=== PATIENT | female | born 1980 | race Hispanic/Latino ===

== ENCOUNTER 2017-06-07 23:41 | Emergency (ER) | payer SELFPAY, OTHER ==
--- NOTE | 2017-06-08 08:52 | RAD ---
TWO VIEW CHEST: INDICATIONS: Cough. COMPARISON: 06/28/2009 FINDINGS: The lungs are clear. No effusion or pneumothorax. The cardiac silhouette is normal in size. The os seous structures are intact. There are metallic clips in the right upper abdomen. IMPRESSION: No focal consolidation. POS: [facility]
== END 2017-06-08 01:30 | disposition home or self-care (01) ==
LOC: ERS 23:41
DX: J40 Bronchitis, not specified as acute or chronic (principal); G40.909 Epilepsy, unspecified, not intractable, without status epilepticus
CPT/HCPCS: 71046; 87804

== ENCOUNTER 2017-07-04 20:54 | Emergency (ER) | payer SELFPAY ==
[2017-07-04] MEDS ORDERED: Diazepam 5 MG TAB ONE (22:13)
== END 2017-07-04 22:55 | disposition home or self-care (01) ==
LOC: ERS 20:54
DX: S76.912A Strain of unspecified muscles, fascia and tendons at thigh level, left thigh, initial encounter (principal); G40.909 Epilepsy, unspecified, not intractable, without status epilepticus; Z79.899 Other long term (current) drug therapy; W19.XXXA Unspecified fall, initial encounter

== ENCOUNTER 2017-07-31 18:45 | Emergency (ER) | payer SELFPAY | END 2017-07-31 19:41 | disposition home or self-care (01) | LOC: ERS 18:45 | DX: R10.31 Right lower quadrant pain (principal); R10.32 Left lower quadrant pain; G40.909 Epilepsy, unspecified, not intractable, without status epilepticus; Z79.899 Other long term (current) drug therapy | CPT/HCPCS: 99284 ==

== ENCOUNTER 2017-08-14 15:05 | Emergency (ER) | payer SELFPAY ==
[2017-08-14 15:27] LABS: #Eosinphils 0.1 thou/uL (0.0-0.7); #Lymphocytes 1.5 thou/uL (1.20-3.40); #Monocytes 0.3 thou/uL (0.11-0.59); #Neutrophils 2.8 thou/uL (1.40-6.50); %Basophils 0.8 % (0.0-1.0); %Eosinophils 1.9 % (0.0-10.0); %Lymphocytes 32.2 % (21.0-51.0); %Monocytes 6.4 % (0.0-10.0); %Neutrophils 58.8 % (42.0-75.0); Hemoglobin 13.8 g/dL (12.0-16.0); Mean Corpuscular HGB CONC 33.1 g/dL (32.0-36.0); Mean Corpuscular Hemoglobin 31.9 pg (27.0-31.0); Mean Corpuscular Volume 96.3 fl (81.0-99.0); Mean Platelet Volume 7.8 fL (7.4-10.4); Platelet Count 174 thou/uL (130-400); RBC Distribution Width 11.5 % (11.5-14.5); Red Blood Cell (RBC) Count 4.34 mill/uL (4.20-5.40); White Blood Cell (WBC) Count 4.7 thou/uL (4.8-10.8)
[2017-08-14 15:46] LABS: ALT (SGPT) 9 U/L (8-55); AST (SGOT) 11 U/L (5-34); Albumin 4.3 g/dL (3.5-5.0); Alkaline Phosphatase 82 U/L (40-150); Anion Gap 11 mmol/L (10-20); BUN (Urea Nitrogen) 10 mg/dL (7.0-18.7); Bilirubin, Total 0.5 mg/dL (0.2-1.2); Calc. Creatinine Clearance 0 mL/min (70-130); Calcium 9.1 mg/dL (7.8-10.44); Carbon Dioxide 25 mmol/L (22-29); Chloride 107 mmol/L (98-107); Estimated GFR-MDRD 79; Globulin 2.5 g/dL (2.4-3.5); Glucose 96 mg/dL (70-105); Potassium 3.8 mmol/L (3.5-5.1); Protein, Total 6.8 g/dL (6.0-8.3); Sodium 139 mmol/L (136-145)
[2017-08-14 15:56] LABS: Bilirubin Negative (Negative); Blood, Urine Negative (Negative); Clarity CLOUDY (Clear); Glucose, Urine (Dipstick) Negative (Negative); Leukocyte Negative (Negative); Nitrite Negative (Negative); Protein, Urine (Dipstick) Negative (Neg-Trace); Specific Gravity, Urine 1.021 (1.002-1.036)
[2017-08-14 16:01] LABS: Pregnancy Test - Urine (BHCG) Negative (Negative); Pregu Control Background? CLEAR/WHITE (CLR/WHITE); Pregu Control Bar Appear? YES (CONTROL BAR); Specific Gravity 1.021 (1.002-1.036)
[2017-08-14] MEDS ORDERED: Ondansetron HCl/PF 4 MG/2 ML Vial ONE (17:48)
[2017-08-14] MEDS ORDERED: Famotidine/PF 20 mg/2ml Vial ONE (17:48)
== END 2017-08-14 19:00 | disposition home or self-care (01) ==
LOC: ERS 15:05
DX: R10.9 Unspecified abdominal pain (principal); R19.7 Diarrhea, unspecified; R11.0 Nausea; G40.909 Epilepsy, unspecified, not intractable, without status epilepticus
CPT/HCPCS: 36415; 80053; 81003; 81025; 85025; 96361; 96372; 96374; 96375; J2405; S0028

== ENCOUNTER 2017-10-09 16:21 | Outpatient (CLI) | payer OTHER ==
[2017-10-09 17:06] LABS: #Eosinphils 0.1 thou/uL (0.0-0.7); #Lymphocytes 1.8 thou/uL (1.20-3.40); #Monocytes 0.4 thou/uL (0.11-0.59); #Neutrophils 3.8 thou/uL (1.40-6.50); %Basophils 0.4 % (0.0-1.0); %Eosinophils 1.6 % (0.0-10.0); %Lymphocytes 29.1 % (21.0-51.0); %Monocytes 6.6 % (0.0-10.0); %Neutrophils 62.2 % (42.0-75.0); Hemoglobin 13.8 g/dL (12.0-16.0); Mean Corpuscular HGB CONC 34.9 g/dL (32.0-36.0); Mean Corpuscular Hemoglobin 32.4 pg (27.0-31.0); Mean Corpuscular Volume 92.8 fl (81.0-99.0); Mean Platelet Volume 8.4 fL (7.4-10.4); Platelet Count 141 thou/uL (130-400); RBC Distribution Width 11.4 % (11.5-14.5); Red Blood Cell (RBC) Count 4.25 mill/uL (4.20-5.40); White Blood Cell (WBC) Count 6.2 thou/uL (4.8-10.8)
== END 2017-10-09 16:22 | disposition home or self-care (01) ==
LOC: LABBT 16:21
PROVIDERS: ATTEND Specialist
DX: Z01.812 Encounter for preprocedural laboratory examination (principal); D24.1 Benign neoplasm of right breast
CPT/HCPCS: 85025

== ENCOUNTER 2017-10-11 14:36 | Emergency (ER) | payer OTHER, SELFPAY ==
[2017-10-11] MEDS ORDERED: diphenhydrAMINE 50 MG/ML VIAL ONE (15:45)
[2017-10-11] MEDS ORDERED: Metoclopramide HCl 10 MG/2 ML VIAL ONE (15:45)
[2017-10-11 15:52] LABS: #Lymphocytes 1.4 thou/uL (1.20-3.40); #Monocytes 0.7 thou/uL (0.11-0.59); #Neutrophils 7.7 thou/uL (1.40-6.50); %Basophils 0.3 % (0.0-1.0); %Eosinophils 0.3 % (0.0-10.0); %Lymphocytes 14.4 % (21.0-51.0); %Monocytes 6.8 % (0.0-10.0); %Neutrophils 78.2 % (42.0-75.0); Mean Corpuscular HGB CONC 34.6 g/dL (32.0-36.0); Mean Corpuscular Hemoglobin 32.4 pg (27.0-31.0); Mean Corpuscular Volume 93.5 fl (81.0-99.0); Mean Platelet Volume 8.2 fL (7.4-10.4); Platelet Count 145 thou/uL (130-400); RBC Distribution Width 11.6 % (11.5-14.5); Red Blood Cell (RBC) Count 4.31 mill/uL (4.20-5.40); White Blood Cell (WBC) Count 9.8 thou/uL (4.8-10.8)
[2017-10-11 15:57] LABS: BHCG - Serum Negative (NEGATIVE); Pregs Control Background? CLEAR/WHITE (CLR/WHITE); Pregs Control Bar Appear? YES (CONTROL BAR)
[2017-10-11 16:16] LABS: ALT (SGPT) 10 U/L (8-55); AST (SGOT) 14 U/L (5-34); Albumin 4.3 g/dL (3.5-5.0); Alkaline Phosphatase 74 U/L (40-150); Anion Gap 9 mmol/L (10-20); BUN (Urea Nitrogen) 17 mg/dL (7.0-18.7); Bilirubin, Total 0.6 mg/dL (0.2-1.2); Calc. Creatinine Clearance 0 mL/min (70-130); Calcium 8.8 mg/dL (7.8-10.44); Carbon Dioxide 22 mmol/L (22-29); Chloride 109 mmol/L (98-107); Estimated GFR-MDRD 80; Globulin 2.5 g/dL (2.4-3.5); Glucose 89 mg/dL (70-105); Potassium 3.6 mmol/L (3.5-5.1); Protein, Total 6.8 g/dL (6.0-8.3); Sodium 136 mmol/L (136-145)
--- NOTE | 2017-10-11 16:25 | CT ---
NONCONTRAST CT HEAD: 10/11/17 HISTORY: Seizure. Trauma. Patient found on floor at 0815 hours today. History of epilepsy. COMPARISON: 11/29/16. FINDINGS: There is no evidence of a hemorrhage, acute infarction, mass effect, or midline shift. Ventricular sy stem is normal in size, shape and position. Again noted is mucosal thickening in the left sphenoid si nus. No other interval change from prior exam. IMPRESSION: 1. No acute intracranial abnormalities demonstrated. 2. Sinus disease involving the left sphenoid sinus. POS: [facility]
--- NOTE | 2017-10-11 16:29 | CT ---
NONCONTRAST CT CERVICAL SPINE 10/11/17 HISTORY: Patient found down on floor around 0815 hours today. History of epilepsy. Trauma. Unwitnessed seizure today. Patient fell from bed to floor. COMPARISON: 11/29/16. FINDINGS: There is no fracture or subluxation involving the cervical spine. Spinal alignment is maintained. The re are mild degenerative changes seen at the C6-7 level with a disc osteophyte complex present which narrows the ventral subarachnoid space and encroaches on the spinal cord. Prevertebral soft tissues are within normal limits. Visualized lung apices are clear. IMPRESSION: No fracture or subluxation involving the cervical spine. Cervical spine is stable compared to study i n 2017. POS: [facility]
== END 2017-10-11 17:20 | disposition home or self-care (01) ==
LOC: ERS 14:36
DX: G40.909 Epilepsy, unspecified, not intractable, without status epilepticus (principal); Z79.899 Other long term (current) drug therapy
CPT/HCPCS: 70450; 72125; 80053; 80177; 84146; 84703; 85025; 96365; 96375; J1200; J2765

== ENCOUNTER 2017-10-15 05:46 | Day surgery (SDC) | payer OTHER ==
[2017-10-09 16:28] VITALS: BMI 25.5
--- NOTE | 2017-10-14 17:24 | HP ---
HISTORY: Velvet Morgan is a 37-year-old female who works at [employer]. 4, para 4 with a family history negative for breast cancer, although her mother had uterine cancer. Patient has had a hysterectomy because of dysplastic cells. The patient has developed a right breast mass and about 5 months ago presented to [facility] Emergency Room. In the medial right breast was noted to have an almond sized mass that she was told would go away. Since that time it has more than quadr upled in size and now she is sent for evaluation. She has had mammograms and ultrasounds of the [facility] t breast, noting a mass 3.7 x 2.5 x 3.7 cm wider than tall, right breast medial. The patient states that this is painful and bothersome to her. She is concerned about malignancy. PHYSICAL EXAMINATION: BREAST: On exam today this is a smooth mobile mass, slightly tender and more characteristic of an en larging fibroadenoma, although cannot be sure there is not a cystosarcoma phyllodes present due to it s rapid enlargement. Would recommend excision and would not bother with biopsy on this occasion. Th e patient unfortunately does not have any financial resources. Plan is to excise this under anesthes ia. It is too large to excise in the office. In 2014 the patient had excision of multiple fibromas from both breasts under the same anesthet ic she had a hysterectomy. ALLERGIES: None. TOBACCO: None. ALCOHOL: None. MEDICATIONS: Anti-seizure medications, levetiracetam, zonisamide, Zanaflex. PAST SURGICAL HISTORY: Hysterectomy, resection of bilateral breast fibroadenomas 2014. FAMILY HISTORY: Noncontributory except as noted above. PHYSICAL EXAMINATION: VITAL SIGNS: Blood pressure 105/63, 65, 98.8 degrees, 149 pounds, 5 foot 4 inches. HEENT: Unremarkable. LUNGS: Clear to auscultation. CARDIAC: Regular rate and rhythm without murmur or gallop. ABDOMEN: Soft, nontender, no masses. EXTREMITIES: Unremarkable. BREASTS: Axilla without lymphadenopathy. Left breast without masses, right breast medially is noted to have a 4 cm mobile mass that is slightly tender. ASSESSMENT AND PLAN: 1. Medial right breast mass. Would plan excision under anesthesia outpatient. She understands risk s, benefits, and consents. I would not do a biopsy in the office as I do not think it would change i ndication to excise this. It is most likely enlarging fibroadenoma with some concern for a cystosarc marielos phyllodes. 2. Seizure disorder. No seizure in the last 5 months. She states she has seizures about every 6 mo nths.
[2017-10-15] MEDS ORDERED: Bupivacaine/Epinephrine 0.25% 30 ML VIAL ONE ×2 (06:32→08:01)
[2017-10-15] MEDS ORDERED: Lidocaine 2% 10 ML INJ ONE (06:32)
[2017-10-15] MEDS ORDERED: Fentanyl 100 MCG/2 ML VIAL ONE (06:56)
[2017-10-15] MEDS ORDERED: Meperidine HCl/PF 25 MG/ML VIAL ONE (08:55)
--- NOTE | 2017-10-15 09:05 | OP ---
DATE OF PROCEDURE: 10/15/2017 PREOPERATIVE DIAGNOSES: Right breast mass medial 3 o'clock in her breast, 4 centimeters, mobile, smo oth mass consistent with fibroadenoma with prior history of multiple fibroadenomas resected, but this one is painful and enlarging. POSTOPERATIVE DIAGNOSES: Right breast mass medial 3 o'clock in her breast, 4 centimeters, mobile, s mooth mass consistent with fibroadenoma with prior history of multiple fibroadenomas resected, but th is one is painful and enlarging. PROCEDURE: Excision of right medial breast mass, medial periareolar incision, layered closure. ANESTHESIA: General. Local 0.25% Marcaine with epinephrine 40 mL mixed with 2% Xylocaine, 10 mL. SURGEON: Dr. Josiah Love PROCEDURE: The patient was taken to the operating room where under general anesthesia, right breast was prepared with ChloraPrep, draped in routine fashion. Local anesthetic infiltrated into the skin and subcutaneous tissue, periareolar medial incision made through the old scar, carried down skin and subcutaneous tissue and the large fiber adenomatous 4 centimeter proximally diameter breast mass exc ised, finger dissection, well encapsulated, smooth, submitted to pathology. Hemostasis gained with c autery. Subcutaneous tissues approximated with 3-0 Monocryl, skin with subdermal 4-0 Monocryl and De rmaGlue applied after local anesthetic infiltrated in the excisional cavity for postoperative pain co ntrol.
[2017-10-15] MEDS ORDERED: Dexamethasone 20 MG/5 ML VIAL ONE (14:49)
[2017-10-15] MEDS ORDERED: Ketorolac Tromethamine 30 MG/ML VIAL ONE (14:49)
[2017-10-15] MEDS ORDERED: diphenhydrAMINE 50 MG/ML VIAL ONE (14:49)
[2017-10-15] MEDS ORDERED: Glycopyrrolate 0.2 MG/ML 5 ML SYRINGE ONE (14:49)
[2017-10-15] MEDS ORDERED: PROPOFOL 200 MG/20 ML VIAL ONE (14:49)
== END 2017-10-15 11:18 | disposition home or self-care (01) ==
LOC: SDC 05:46
PROVIDERS: ATTEND Specialist
PROC: 0HBT0ZX Excision of Right Breast, Open Approach, Diagnostic (ICD-10-PCS; principal; 2017-10-15)
DX: D24.1 Benign neoplasm of right breast (principal); D64.9 Anemia, unspecified; G43.909 Migraine, unspecified, not intractable, without status migrainosus; R56.9 Unspecified convulsions; Z88.5 Allergy status to narcotic agent; Z88.6 Allergy status to analgesic agent; Z88.8 Allergy status to other drugs, medicaments and biological substances; Z91.013 Allergy to seafood; Z79.899 Other long term (current) drug therapy
CPT/HCPCS: 88305; 96374; J1100; J1200; J1885; J2175; J2704; J3010

== ENCOUNTER 2017-11-12 13:22 | Emergency (ER) | payer SELFPAY ==
--- NOTE | 2017-11-12 13:54 | RAD ---
LEFT HAND THREE VIEWS: History: 37-year-old female with history of left hand and thumb pain following a fall yesterday. FINDINGS/IMPRESSION: No fracture, dislocation, or other significant acute osseous abnormality. POS: [facility]
== END 2017-11-12 14:15 | disposition home or self-care (01) ==
LOC: ERS 13:22
DX: S63.602A Unspecified sprain of left thumb, initial encounter (principal); G40.909 Epilepsy, unspecified, not intractable, without status epilepticus; Z79.899 Other long term (current) drug therapy; W01.0XXA Fall on same level from slipping, tripping and stumbling without subsequent striking against object, initial encounter

== ENCOUNTER 2018-04-08 16:52 | Emergency (ER) | payer SELFPAY ==
[2018-04-08] MEDS ORDERED: Diazepam 5 MG TAB ONE (18:28)
--- NOTE | 2018-04-08 19:25 | RAD ---
LEFT WRIST THREE VIEWS: 04/08/18 INDICATION: History of seizure with fall with left wrist pain. COMPARISON: None. FINDINGS: No acute fracture or subluxation is evident. Soft tissue is normal appearing. IMPRESSION: No acute osseous abnormality. POS: [facility]
--- NOTE | 2018-04-08 19:28 | RAD ---
LEFT LONG FINGER RADIOGRAPH (THREE VIEWS) 04/08/18 INDICATION: History of seizure with fall with left finger pain. COMPARISON: None. FINDINGS: No acute fracture or subluxation is evident. No radiopaque foreign body is noted. IMPRESSION: No acute osseous abnormality. POS: [facility]
== END 2018-04-08 19:06 | disposition home or self-care (01) ==
LOC: ERS 16:52
DX: S60.032A Contusion of left middle finger without damage to nail, initial encounter (principal); M25.532 Pain in left wrist; Z79.899 Other long term (current) drug therapy; W18.30XA Fall on same level, unspecified, initial encounter

== ENCOUNTER 2018-10-30 09:57 | Emergency (ER) | payer SELFPAY ==
[2018-10-30 10:39] LABS: #Eosinphils 0.1 thou/uL (0.0-0.7); #Lymphocytes 1.6 thou/uL (1.20-3.40); #Monocytes 0.3 thou/uL (0.11-0.59); #Neutrophils 2.5 thou/uL (1.40-6.50); %Basophils 0.9 % (0.0-1.0); %Eosinophils 1.5 % (0.0-10.0); %Lymphocytes 34.8 % (21.0-51.0); %Monocytes 7.4 % (0.0-10.0); %Neutrophils 55.4 % (42.0-75.0); Hemoglobin 13.9 g/dL (12.0-16.0); Mean Corpuscular Hemoglobin 32.3 pg (27.0-31.0); Mean Corpuscular Volume 94.8 fL (78.0-98.0); Mean Platelet Volume 8.3 fL (7.4-10.4); Platelet Count 150 thou/uL (130-400); RBC Distribution Width 11.4 % (11.5-14.5); Red Blood Cell (RBC) Count 4.31 mill/uL (4.20-5.40); White Blood Cell (WBC) Count 4.5 thou/uL (4.8-10.8)
[2018-10-30 10:44] LABS: BHCG - Serum Negative (NEGATIVE); Pregs Control Background? CLEAR/WHITE (CLR/WHITE); Pregs Control Bar Appear? YES (CONTROL BAR)
[2018-10-30 10:52] LABS: Bilirubin Negative (Negative); Blood, Urine Negative (Negative); Clarity CLEAR (Clear); Glucose, Urine (Dipstick) Negative (Negative); Leukocyte Negative (Negative); Nitrite Negative (Negative); Protein, Urine (Dipstick) Negative (Neg-Trace); Specific Gravity, Urine 1.016 (1.002-1.036)
[2018-10-30 11:01] LABS: ALT (SGPT) 7 U/L (8-55); AST (SGOT) 11 U/L (5-34); Albumin 4.7 g/dL (3.5-5.0); Alkaline Phosphatase 79 U/L (40-150); Anion Gap 12 mmol/L (10-20); BUN (Urea Nitrogen) 15 mg/dL (7.0-18.7); Bilirubin, Total 0.8 mg/dL (0.2-1.2); Calc. Creatinine Clearance 0 mL/min (70-130); Calcium 9.4 mg/dL (7.8-10.44); Carbon Dioxide 23 mmol/L (22-29); Chloride 108 mmol/L (98-107); Estimated GFR-MDRD 77; Globulin 2.5 g/dL (2.4-3.5); Glucose 100 mg/dL (70-105); Lipase 17 U/L (8-78); Potassium 4.8 mmol/L (3.5-5.1); Protein, Total 7.2 g/dL (6.0-8.3); Sodium 138 mmol/L (136-145)
--- NOTE | 2018-10-30 11:20 | ULT ---
PELVIC ULTRASOUND: Transabdominal and endovaginal ultrasound of pelvis performed. INDICATION: 38-year-old female with pelvic pain. History of ovarian cyst. FINDINGS: Patient is status post hysterectomy. Right ovary is identified. There is a right ovarian cyst measuri ng 1.0 x 1.5 cm. There are other small normal appearing follicles in the right ovary. Left ovary is identified and appears unremarkable. Color Doppler with spectral analysis demonstrates blood flow to both ovaries. IMPRESSION: Small right ovarian cyst. Pelvic ultrasound otherwise unremarkable. POS: [facility]
== END 2018-10-30 11:42 | disposition home or self-care (01) ==
LOC: ERS 09:57
DX: N83.201 Unspecified ovarian cyst, right side (principal); G40.909 Epilepsy, unspecified, not intractable, without status epilepticus; Z79.899 Other long term (current) drug therapy
CPT/HCPCS: 36415; 76856; 80053; 81003; 83690; 84703; 85025; 87086

== ENCOUNTER 2019-09-02 10:14 | Outpatient (CLI) | payer BC ==
--- NOTE | 2019-09-02 10:46 | RAD ---
RIGHT ELBOW 4 VIEWS: Date; 09/02/2019 HISTORY: Right elbow pain. FINDINGS: No fracture, dislocation, joint effusion, or other significant acute process. IMPRESSION: Unremarkable right elbow. POS: [facility]
== END 2019-09-02 10:15 | disposition home or self-care (01) ==
LOC: BICRAD 10:14
PROVIDERS: ATTEND Nurse Practitioner Family
DX: M25.521 Pain in right elbow (principal)

== ENCOUNTER 2019-11-25 12:26 | Emergency (ER) | payer BC ==
[2019-11-25 13:04] LABS: #Lymphocytes 1.5 thou/uL (1.20-3.40); #Monocytes 0.3 thou/uL (0.11-0.59); #Neutrophils 2.9 thou/uL (1.40-6.50); %Basophils 0.5 % (0.0-1.0); %Eosinophils 0.8 % (0.0-10.0); %Lymphocytes 32.2 % (21.0-51.0); %Monocytes 6.3 % (0.0-10.0); %Neutrophils 60.2 % (42.0-75.0); Hemoglobin 14.2 g/dL (12.0-16.0); Mean Corpuscular HGB CONC 35.6 g/dL (32.0-36.0); Mean Corpuscular Hemoglobin 33.2 pg (27.0-31.0); Mean Corpuscular Volume 93.5 fL (78.0-98.0); Mean Platelet Volume 8.5 fL (7.4-10.4); Platelet Count 150 thou/uL (130-400); RBC Distribution Width 11.4 % (11.5-14.5); Red Blood Cell (RBC) Count 4.28 mill/uL (4.20-5.40); White Blood Cell (WBC) Count 4.8 thou/uL (4.8-10.8)
[2019-11-25 13:25] LABS: BHCG - Serum Negative (NEGATIVE); Pregs Control Background? CLEAR/WHITE (CLR/WHITE); Pregs Control Bar Appear? YES (CONTROL BAR)
[2019-11-25 13:29] LABS: ALT (SGPT) 10 U/L (8-55); AST (SGOT) 12 U/L (5-34); Albumin 4.5 g/dL (3.5-5.0); Alkaline Phosphatase 81 U/L (40-110); Anion Gap 9 mmol/L (10-20); BUN (Urea Nitrogen) 11 mg/dL (7.0-18.7); Bilirubin, Total 0.6 mg/dL (0.2-1.2); Calc. Creatinine Clearance 0 mL/min (70-130); Calcium 8.8 mg/dL (7.8-10.44); Carbon Dioxide 24 mmol/L (22-29); Chloride 106 mmol/L (98-107); Estimated GFR-MDRD 78; Globulin 2.7 g/dL (2.4-3.5); Glucose 93 mg/dL (70-105); Lipase 21 U/L (8-78); Potassium 3.3 mmol/L (3.5-5.1); Protein, Total 7.2 g/dL (6.0-8.3); Sodium 136 mmol/L (136-145)
[2019-11-25] MEDS ORDERED: Ondansetron PF 4 MG/2 ML Vial ONE (13:56)
[2019-11-25] MEDS ORDERED: Fentanyl 100 MCG/2 ML VIAL ONE (13:56)
[2019-11-25 14:16] LABS: Bilirubin Negative (Negative); Blood, Urine Negative (Negative); Clarity Clear (Clear); Glucose, Urine (Dipstick) Normal (Negative); Leukocyte Negative Leu/uL (Negative); Nitrite Negative (Negative); Protein, Urine (Dipstick) Negative (Neg-Trace); Urobilinogen Normal mg/dL (Less than 2)
[2019-11-25] MEDS ORDERED: Iopamidol-370 76% 500 ML 1 ML ONE (14:26)
--- NOTE | 2019-11-25 15:33 | CT ---
CT ABDOMEN AND PELVIS WITH IV CONTRAST: 11/25/19 HISTORY: Right lower quadrant pain. COMPARISON: 08/23/15. FINDINGS: The lung bases are unremarkable. Changes of cholecystectomy and hysterectomy are seen. The spleen, pa ncreas, adrenal glands and kidneys are normal. There is a new peripheral 1 cm low density lesion in the posterior aspect of the right lobe of the li hawk, close to the dome. There is an attenuation value of 45 Hounsfield units. No free air, free fluid or lymphadenopathy seen in the abdomen or pelvis. The small bowel loops are n ot abnormally dilated. A normal appearing appendix is present. There is sigmoid diverticulosis. There is no evidence of aneurysmal dilatation of the abdominal aorta. There are mild degenerative ally nges in the spine. IMPRESSION: 1. No evidence of appendicitis. 2. Sigmoid diverticulosis. 3. Indeterminate 1 cm liver lesion. A follow-up exam should be performed in three months. A meta static workup would also be helpful. Code T POS: [facility]
== END 2019-11-25 16:21 | disposition home or self-care (01) ==
LOC: ERS 12:26
DX: R10.31 Right lower quadrant pain (principal); Z79.899 Other long term (current) drug therapy
CPT/HCPCS: 36415; 74177; 80053; 81003; 83605; 83690; 84703; 85025; 96361; 96374; 96375; J2405; J3010; Q9967

== ENCOUNTER 2019-12-27 15:40 | Emergency (ER) | payer BC ==
[2019-12-27 16:21] LABS: #Eosinphils 0.1 thou/uL (0.0-0.7); #Lymphocytes 1.7 thou/uL (1.20-3.40); #Monocytes 0.3 thou/uL (0.11-0.59); #Neutrophils 3.6 thou/uL (1.40-6.50); %Basophils 0.1 % (0.0-1.0); %Eosinophils 1.5 % (0.0-10.0); %Lymphocytes 29.8 % (21.0-51.0); %Monocytes 5.5 % (0.0-10.0); %Neutrophils 63.1 % (42.0-75.0); Hemoglobin 13.9 g/dL (12.0-16.0); Mean Corpuscular HGB CONC 34.1 g/dL (32.0-36.0); Mean Corpuscular Hemoglobin 31.8 pg (27.0-31.0); Mean Corpuscular Volume 93.4 fL (78.0-98.0); Mean Platelet Volume 8.4 fL (7.4-10.4); Platelet Count 151 thou/uL (130-400); RBC Distribution Width 11.4 % (11.5-14.5); Red Blood Cell (RBC) Count 4.37 mill/uL (4.20-5.40); White Blood Cell (WBC) Count 5.8 thou/uL (4.8-10.8)
[2019-12-27 16:36] LABS: ALT (SGPT) 10 U/L (8-55); AST (SGOT) 11 U/L (5-34); Albumin 4.5 g/dL (3.5-5.0); Alkaline Phosphatase 94 U/L (40-110); Anion Gap 10 mmol/L (10-20); BUN (Urea Nitrogen) 14 mg/dL (7.0-18.7); Bilirubin, Total 0.3 mg/dL (0.2-1.2); Calc. Creatinine Clearance 0 mL/min (70-130); Calcium 9.1 mg/dL (7.8-10.44); Carbon Dioxide 23 mmol/L (22-29); Chloride 109 mmol/L (98-107); Estimated GFR-MDRD 79; Globulin 2.7 g/dL (2.4-3.5); Glucose 127 mg/dL (70-105); Potassium 3.9 mmol/L (3.5-5.1); Protein, Total 7.2 g/dL (6.0-8.3); Sodium 138 mmol/L (136-145)
[2019-12-27 17:07] LABS: Bilirubin Negative (Negative); Blood, Urine Negative (Negative); Clarity Cloudy (Clear); Glucose, Urine (Dipstick) Negative (Negative); Ketone, Urine Negative (Negative); Leukocyte Negative (Negative); Nitrite Negative (Negative); Protein, Urine (Dipstick) Negative (Neg-Trace); Specific Gravity, Urine 1.025 (1.005-1.030); pH, Urine 8.5 (5.0-9.0)
[2019-12-27] MEDS ORDERED: Ketorolac Tromethamine 30 MG/ML VIAL ONE (17:08)
[2019-12-27 17:16] LABS: Bacteria/HPF 1+ HPF (None Seen); RBC/HPF 0-3 HPF (0-3); Squamous Epithelial 0-3 HPF (0-3); WBC/HPF 0-3 HPF (0-3)
[2019-12-27 17:43] LABS: BHCG - Serum Negative (NEGATIVE); Pregs Control Background? CLEAR/WHITE (CLR/WHITE); Pregs Control Bar Appear? YES (CONTROL BAR)
--- NOTE | 2019-12-27 17:43 | ULT ---
Exam: Transabdominal and endovaginal pelvic ultrasound HISTORY:Previous partial hysterectomy. Right adnexal pain x2 months. COMPARISON:10/30/2018 TECHNIQUE: Transabdominal and endovaginal imaging of the pelvis is performed. Ovaries are interrogate d with grayscale, color flow, Doppler imaging and spectral wave form analysis FINDINGS: Uterus: Surgically absent Free fluid: None Right ovary: Normal echotexture. 1.7 cm follicle. Right ovary measurement: 1.8 x 2.0 x 4.3 cm Left ovary: Normal echotexture. Left ovary measurements: 1.5 x 3.0 x 1.7 cm Ovarian Doppler: There is vascular flow to the left and right ovary. IMPRESSION: Right ovarian follicle. Follow-up ultrasound in 8 weeks.
== END 2019-12-27 18:30 | disposition home or self-care (01) ==
LOC: ERS 15:40
DX: N83.01 Follicular cyst of right ovary (principal); G40.909 Epilepsy, unspecified, not intractable, without status epilepticus; Z79.899 Other long term (current) drug therapy
CPT/HCPCS: 36415; 76856; 80053; 81003; 83605; 83690; 84703; 85025; 96372; J1885

== ENCOUNTER 2020-08-10 19:46 | Emergency (ER) | payer BC ==
[2020-08-10] MEDS ORDERED: Ketorolac Tromethamine 30 MG/ML VIAL ONE (20:09)
== END 2020-08-10 20:44 | disposition home or self-care (01) ==
LOC: ERS 19:46
DX: M77.11 Lateral epicondylitis, right elbow (principal); G40.909 Epilepsy, unspecified, not intractable, without status epilepticus; Z79.899 Other long term (current) drug therapy
CPT/HCPCS: 96372; J1885

== ENCOUNTER 2020-09-17 14:36 | Emergency (ER) | payer BC ==
[2020-09-17] MEDS ORDERED: Dexamethasone 4 mg/ml Vial ONE (16:03)
== END 2020-09-17 16:14 | disposition home or self-care (01) ==
LOC: ERS 14:36
DX: J02.9 Acute pharyngitis, unspecified (principal); G40.909 Epilepsy, unspecified, not intractable, without status epilepticus; Z79.899 Other long term (current) drug therapy
CPT/HCPCS: 87081; 87430; 99284; J1100

== ENCOUNTER 2020-09-25 07:26 | Outpatient (CLI) | payer OTHER | END 2020-09-25 07:27 | disposition home or self-care (01) | LOC: BICMRI 07:26 | PROVIDERS: ATTEND Family Medicine | DX: S50.01XD Contusion of right elbow, subsequent encounter (principal); S46.911D Strain of unspecified muscle, fascia and tendon at shoulder and upper arm level, right arm, subsequent encounter ==

== ENCOUNTER 2021-06-22 09:03 | Outpatient (CLI) | payer BC | END 2021-06-22 09:04 | disposition home or self-care (01) | LOC: BICMAMMO 09:03 | PROVIDERS: ATTEND Student in an Organized Health Care Education/Training Program | DX: N63.11 Unspecified lump in the right breast, upper outer quadrant (principal); Z98.890 Other specified postprocedural states | CPT/HCPCS: 77066; G0279 ==

== ENCOUNTER 2021-10-12 14:29 | Outpatient (CLI) | payer BC | END 2021-10-12 14:30 | disposition home or self-care (01) | LOC: ULT 14:29 | PROVIDERS: ATTEND Family Medicine | DX: R22.1 Localized swelling, mass and lump, neck (principal) | CPT/HCPCS: 76536 ==

== ENCOUNTER 2021-10-23 08:08 | Outpatient (CLI) | payer BC ==
[2021-10-23] MEDS ORDERED: ISOVUE-370 76% 1 ML ONE (15:13)
== END 2021-10-23 08:09 | disposition home or self-care (01) ==
LOC: BICCT 08:08
PROVIDERS: ATTEND Student in an Organized Health Care Education/Training Program
DX: R22.1 Localized swelling, mass and lump, neck (principal)
CPT/HCPCS: 70491

== ENCOUNTER 2021-12-09 09:23 | Emergency (ER) | payer BC ==
[2021-12-09] MEDS ORDERED: Ibuprofen 200 MG TAB ONE (12:36)
== END 2021-12-09 12:41 | disposition home or self-care (01) ==
LOC: ERS 09:23
DX: S00.03XA Contusion of scalp, initial encounter (principal); G40.909 Epilepsy, unspecified, not intractable, without status epilepticus; N83.209 Unspecified ovarian cyst, unspecified side; W18.30XA Fall on same level, unspecified, initial encounter; Z79.899 Other long term (current) drug therapy
CPT/HCPCS: 70450; 70486; 72125

== ENCOUNTER 2022-01-02 11:10 | Outpatient (CLI) | payer BC ==
[2022-01-02] MEDS ORDERED: Magnevist 469MG/ML 20 ML VIAL ONE (14:29)
== END 2022-01-02 11:11 | disposition home or self-care (01) ==
LOC: EEG 11:10
PROVIDERS: ATTEND Psychiatry & Neurology Neurology
DX: G40.309 Generalized idiopathic epilepsy and epileptic syndromes, not intractable, without status epilepticus (principal)
CPT/HCPCS: 70553; 95816; 95957; A9579

== ENCOUNTER 2022-06-08 19:36 | Emergency (ER) | payer BC ==
[2022-06-08 20:26] LABS: Bilirubin Negative (Negative); Blood, Urine Negative (Negative); Clarity Extra Turbid (Clear); Glucose, Urine (Dipstick) Normal (Negative); Ketone, Urine Negative (Negative); Leukocyte 25 Leu/uL (Negative); Nitrite Negative (Negative); Protein, Urine (Dipstick) 30 mg/dL (Neg-Trace); RBC/HPF 0-3 HPF (0-3); Specific Gravity, Urine 1.033 (1.002-1.036); WBC/HPF 0-3 HPF (0-3)
[2022-06-08 20:33] LABS: Bacteria/HPF Rare-Few HPF (None Seen); Mucous/LPF 1+ LPF (<2+)
[2022-06-08] MEDS ORDERED: Meclizine HCl 25 MG TAB ONE (20:58)
[2022-06-08] MEDS ORDERED: levETIRAcetam 500 MG/5 ML VIAL ONE (20:58)
[2022-06-08 21:05] LABS: #Basophils 0.1 thou/uL (0.0-0.2); #Eosinphils 0.1 thou/uL (0.0-0.7); #Lymphocytes 2.1 thou/uL (1.20-3.40); #Monocytes 0.4 thou/uL (0.11-0.59); #Neutrophils 3.7 thou/uL (1.40-6.50); %Basophils 1.2 % (0.0-1.0); %Eosinophils 1.8 % (0.0-10.0); %Lymphocytes 33.2 % (21.0-51.0); %Monocytes 6.2 % (0.0-10.0); %Neutrophils 57.6 % (42.0-75.0); Mean Corpuscular HGB CONC 33.9 g/dL (32.0-36.0); Mean Corpuscular Volume 94.4 fl (78.0-98.0); Mean Platelet Volume 8.5 fL (7.4-10.4); Platelet Count 186 10x3/uL (130-400); RBC Distribution Width 11.8 % (11.5-14.5); Red Blood Cell (RBC) Count 4.36 mill/uL (4.20-5.40); White Blood Cell (WBC) Count 6.4 10x3/uL (4.8-10.8)
[2022-06-08 21:28] LABS: ALT (SGPT) Less than 7 U/L (8-55); AST (SGOT) 12 U/L (5-34); Albumin 4.3 g/dL (3.5-5.0); Alkaline Phosphatase 85 U/L (40-110); Anion Gap 11 mmol/L (10-20); BUN (Urea Nitrogen) 15 mg/dL (7.0-18.7); Bilirubin, Total 0.2 mg/dL (0.2-1.2); Calc. Creatinine Clearance 0 mL/min (70-130); Calcium 8.7 mg/dL (7.8-10.44); Carbon Dioxide 21 mmol/L (22-29); Chloride 111 mmol/L (98-107); Estimated GFR 81; Globulin 2.6 g/dL (2.4-3.5); Glucose 101 mg/dL (70-105); Potassium 4.1 mmol/L (3.5-5.1); Protein, Total 6.9 g/dL (6.0-8.3); Sodium 139 mmol/L (136-145)
[2022-06-09 04:19] LABS: BHCG - Serum Negative (NEGATIVE); Pregs Control Background? CLEAR/WHITE (CLR/WHITE); Pregs Control Bar Appear? YES (CONTROL BAR)
== END 2022-06-08 23:50 | disposition home or self-care (01) ==
LOC: ERS 19:36
DX: S00.93XA Contusion of unspecified part of head, initial encounter (principal); G40.909 Epilepsy, unspecified, not intractable, without status epilepticus; R42 Dizziness and giddiness; W18.00XA Striking against unspecified object with subsequent fall, initial encounter
CPT/HCPCS: 36415; 70450; 80053; 81003; 81015; 84703; 85025; 93005; 96374; J1953

== ENCOUNTER 2023-01-08 19:50 | Emergency (ER) | payer BC ==
[~2023-01-08 19:50] MED LIST: Iopamidol-370 76% 500 ML MDV (1 ML CHARGE) ONE
[2023-01-08 20:13] LABS: Pregnancy Test - Urine (BHCG) Negative (Negative); Pregu Control Background? CLEAR/WHITE (CLR/WHITE); Pregu Control Bar Appear? YES (CONTROL BAR); Specific Gravity 1.009 (1.002-1.036)
[2023-01-08 20:15] LABS: Bacteria/HPF None Seen HPF (None Seen); Bilirubin Negative (Negative); Blood, Urine Negative (Negative); CAUTI Indications for Culture Pelvic or flank pain; Clarity Turbid (Clear); Glucose, Urine (Dipstick) Normal (Negative); Ketone, Urine Negative (Negative); Leukocyte 25 Leu/uL (Negative); Nitrite Negative (Negative); Protein, Urine (Dipstick) Negative (Neg-Trace); RBC/HPF 0-3 HPF (0-3); Specific Gravity, Urine 1.009 (1.002-1.036); Squamous Epithelial 0-3 HPF (0-3); Urobilinogen Normal mg/dL (Less than 2); WBC/HPF 0-3 HPF (0-3)
[2023-01-08 20:17] LABS: Urine Culture Reflex No No
[2023-01-08 20:47] LABS: #Eosinphils 0.1 thou/uL (0.0-0.7); #Monocytes 0.6 thou/uL (0.11-0.59); %Basophils 0.5 % (0.0-1.0); %Eosinophils 0.9 % (0.0-10.0); %Lymphocytes 26.8 % (21.0-51.0); %Monocytes 7.6 % (0.0-10.0); %Neutrophils 63.9 % (42.0-75.0); Mean Corpuscular HGB CONC 35.1 g/dL (32.0-36.0); Mean Corpuscular Hemoglobin 31.9 pg (27.0-31.0); Mean Corpuscular Volume 90.7 fl (78.0-98.0); Platelet Count 180 10x3/uL (130-400); RBC Distribution Width 12.3 % (11.5-14.5); Red Blood Cell (RBC) Count 4.08 mill/uL (4.20-5.40); White Blood Cell (WBC) Count 7.8 10x3/uL (4.8-10.8)
[2023-01-08] MEDS ORDERED: fentaNYL 50 mcg/mL 1 mL Vial ONE (21:00)
[2023-01-08 21:10] LABS: ALT (SGPT) 12 U/L (8-55); AST (SGOT) 12 U/L (5-34); Albumin 4.3 g/dL (3.5-5.0); Alkaline Phosphatase 82 U/L (40-110); Anion Gap 12 mmol/L (10-20); BUN (Urea Nitrogen) 11 mg/dL (7.0-18.7); Bilirubin, Total 0.4 mg/dL (0.2-1.2); Calc. Creatinine Clearance 0 mL/min (70-130); Calcium 8.9 mg/dL (7.8-10.44); Carbon Dioxide 23 mmol/L (22-29); Chloride 109 mmol/L (98-107); Estimated GFR 87; Globulin 2.6 g/dL (2.4-3.5); Glucose 93 mg/dL (70-105); Lipase 22 U/L (8-78); Potassium 3.7 mmol/L (3.5-5.1); Protein, Total 6.9 g/dL (6.0-8.3); Sodium 140 mmol/L (136-145)
== END 2023-01-09 02:25 | disposition home or self-care (01) ==
LOC: ERS 19:50
DX: R10.31 Right lower quadrant pain (principal)
CPT/HCPCS: 36415; 74177; 80053; 81001; 81025; 83690; 85025; 96374; J3010; Q9967

== ENCOUNTER 2023-01-14 12:39 | Emergency (ER) | payer BC ==
[2023-01-14] MEDS ORDERED: fentaNYL 50 mcg/mL 1 mL Vial ONE (14:00)
[2023-01-14 14:06] LABS: Bacteria/HPF None Seen HPF (None Seen); Bilirubin Negative (Negative); Blood, Urine Negative (Negative); CAUTI Indications for Culture Pelvic or flank pain; Clarity Turbid (Clear); Glucose, Urine (Dipstick) Normal (Negative); Ketone, Urine Negative (Negative); Leukocyte 75 Leu/uL (Negative); Nitrite Negative (Negative); Protein, Urine (Dipstick) Negative (Neg-Trace); RBC/HPF 0-3 HPF (0-3); Specific Gravity, Urine 1.021 (1.002-1.036); Urobilinogen Normal mg/dL (Less than 2); WBC/HPF 0-3 HPF (0-3); pH, Urine 5.5 (5.0-9.0)
[2023-01-14 14:07] LABS: Urine Culture Reflex No No
[2023-01-14 14:09] LABS: #Eosinphils 0.1 thou/uL (0.0-0.7); #Monocytes 0.4 thou/uL (0.11-0.59); #Neutrophils 5.1 thou/uL (1.40-6.50); %Basophils 0.3 % (0.0-1.0); %Eosinophils 0.7 % (0.0-10.0); %Neutrophils 70.7 % (42.0-75.0); Hematocrit 42.6 % (36.0-47.0); Hemoglobin 14.7 g/dL (12.0-16.0); Mean Corpuscular HGB CONC 34.5 g/dL (32.0-36.0); Mean Corpuscular Hemoglobin 31.6 pg (27.0-31.0); Mean Corpuscular Volume 91.6 fl (78.0-98.0); Mean Platelet Volume 10.3 fL (7.4-10.4); Platelet Count 201 10x3/uL (130-400); RBC Distribution Width 12.2 % (11.5-14.5); Red Blood Cell (RBC) Count 4.65 mill/uL (4.20-5.40); White Blood Cell (WBC) Count 7.2 10x3/uL (4.8-10.8)
[2023-01-14 14:27] LABS: ALT (SGPT) 8 U/L (8-55); AST (SGOT) 11 U/L (5-34); Albumin 4.5 g/dL (3.5-5.0); Alkaline Phosphatase 89 U/L (40-110); Anion Gap 13 mmol/L (10-20); BUN (Urea Nitrogen) 12 mg/dL (7.0-18.7); Bilirubin, Total 0.5 mg/dL (0.2-1.2); Calc. Creatinine Clearance 0 mL/min (70-130); Calcium 9.2 mg/dL (7.8-10.44); Carbon Dioxide 21 mmol/L (22-29); Chloride 109 mmol/L (98-107); Estimated GFR 79; Globulin 2.9 g/dL (2.4-3.5); Glucose 86 mg/dL (70-105); Potassium 3.9 mmol/L (3.5-5.1); Protein, Total 7.4 g/dL (6.0-8.3); Sodium 139 mmol/L (136-145)
== END 2023-01-14 15:31 | disposition home or self-care (01) ==
LOC: ERS 12:39
DX: M54.50 Low back pain, unspecified (principal)
CPT/HCPCS: 74176; 80053; 81001; 85025; 96361; 96374; J3010

== ENCOUNTER 2023-06-26 15:11 | Outpatient (CLI) | payer BC | END 2023-06-26 15:12 | disposition home or self-care (01) | LOC: BICRAD 15:11 | PROVIDERS: ATTEND Family Medicine | DX: M89.8X7 Other specified disorders of bone, ankle and foot (principal) ==